=== PATIENT | male | born 1965 | race African-American/Black ===

== ENCOUNTER 2021-06-14 08:33 | Emergency (ER) | payer BC ==
[~2021-06-14] VITALS: Ht 188 cm; Wt 103.0 kg
[2021-06-14 09:05] VITALS: BP 154/102
[2021-06-14] MEDS ORDERED: IBUPROFEN 600MG TABLET PO ONE (09:15)
[2021-06-14] MEDS ORDERED: IBUP-2029 MT (09:20)
== END 2021-06-14 09:45 | disposition home or self-care (01) ==
LOC: ER 09:02
DX: S00.03XA Contusion of scalp, initial encounter (principal); W20.8XXA Other cause of strike by thrown, projected or falling object, initial encounter; Y93.89 Activity, other specified; Y92.89 Other specified places as the place of occurrence of the external cause; Y99.8 Other external cause status
CPT/HCPCS: 99283